=== PATIENT | male | born 1965 | race Hispanic/Latino ===

== ENCOUNTER 2018-07-02 00:47 | Emergency (ER) | payer SELFPAY ==
[~2018-07-02] VITALS: Ht 182.9 cm; Wt 120.2 kg
== END 2018-07-02 02:01 | disposition left against medical advice (07) ==
LOC: ER 00:47
DX: I10 Essential (primary) hypertension (principal)

== ENCOUNTER 2024-03-25 03:18 | Emergency (ER) | payer MEDICARE ==
[~2024-03-25] VITALS: Ht 182.9 cm; Wt 120.2 kg
[~2024-03-25 03:18] MED LIST: FLOMAX0.4 MG PO; GLIPIZIDE5 MG PO; NEURONTIN300 MG PO; PENICILLIN V P500 MG PO; TRAZODONE HCL100 MG PO; VASOTEC5 MG PO; tylenol 3 PO
[2024-03-25 03:51] VITALS: PULSE 89; RESP 17; TEMP 98.5; O2SAT 100
[2024-03-25] MEDS: ACETAMINOPHEN 325 MG TAB PO ONE (04:23)
== END 2024-03-25 04:23 | disposition home or self-care (01) ==
LOC: ER 03:21
DX: M79.672 Pain in left foot (principal); M79.671 Pain in right foot; E11.40 Type 2 diabetes mellitus with diabetic neuropathy, unspecified; I10 Essential (primary) hypertension; E78.5 Hyperlipidemia, unspecified; I50.9 Heart failure, unspecified
CPT/HCPCS: 99282